=== PATIENT | female | born 1960 ===

== ENCOUNTER 2018-07-09 12:07 | Emergency (ER) | payer BC ==
[2018-07-09 12:16] VITALS: BMI 30.4
[2018-07-09 12:22] VITALS: TEMP 98.4
--- NOTE | 2018-07-09 13:07 | C.PDOC ---
History Of Present Illness 57 y/o female pt with hx of DM and HTN presents to the ER c/o left flank pain. Pt reports she woke up at 5:30 with left flank pain. Associated sx includes nausea and vomiting. Pt denies fever and diarrhea. Time Seen by Provider: 07/09/18 13:01 Chief Complaint (Nursing): Female Genitourinary History Per: Patient History/Exam Limitations: no limitations Onset/Duration Of Symptoms: Hrs Current Symptoms Are (Timing): Still Present Location Of Pain/Discomfort: Other (left flank) Past Medical History Reviewed: Historical Data, Nursing Documentation, Vital Signs Vital Signs: Last Vital Signs Temp 98.4 F 07/09/18 12:16 Pulse 92 H 07/09/18 12:16 Resp 17 07/09/18 12:16 BP 127/86 07/09/18 12:16 Pulse Ox 100 07/09/18 12:16 - Medical History PMH: HTN, Hypercholesterolemia, Kidney Stones, Chronic Kidney Disease (SEE COMMENT) Family History: States: No Known Family Hx - Social History Hx Alcohol Use: No Hx Substance Use: No - Immunization History Hx Tetanus Toxoid Vaccination: No Hx Influenza Vaccination: No Hx Pneumococcal Vaccination: Yes Review Of Systems Except As Marked, All Systems Reviewed And Found Negative. Constitutional: Negative for: Fever Gastrointestinal: Positive for: Nausea, Vomiting, Abdominal Pain (left flank pain ). Negative for: Diarrhea Physical Exam - Physical Exam Appears: Non-toxic, No Acute Distress Skin: Warm, Dry Head: Normacephalic Eye(s): bilateral: Normal Inspection, EOMI Oral Mucosa: Moist Chest: Symmetrical Cardiovascular: Rhythm Regular Respiratory: Normal Breath Sounds Gastrointestinal/Abdominal: Soft, No Tenderness, No Distention, No Guarding, No Rebound Back: CVA Tenderness Extremity: No Pedal Edema Neurological/Psych: Oriented x3, Normal Speech ED Course And Treatment - Laboratory Results Result Diagrams: 07/09/18 13:43 07/09/18 13:43 O2 Sat by Pulse Oximetry: 100 (RA) Pulse Ox Interpretation: Normal - CT Scan/US Abd&pelvis CT Other Rad Studies (CT/US): Read By Radiologist, Radiology Report Reviewed CT/US Interpretation: Accession No. : [id number]. Patient Name / ID : ED FUENTES / [id number]. Exam Date : 07/09/2018 13:47:47 ( Approved ). Study Comment : Sex / Age : F / 57Y. Creator : Haven Napoles MD. Dictator : Haven Napoles MD. Ribbon Blocker : Broadcast Journalist : Haven Napoles MD. Approver2 : Report Date : 07/09/2018 14:21:46. My Comment : . Date of service: 07/09/2018. PROCEDURE: CT Abdomen and Pelvis without intravenous contrast. HISTORY: abd pain. COMPARISON: None. TECHNIQUE: Axial and reformatted coronal and sagittal CT images of the abdomen and pelvis were obtained without IV or oral contrast administration.. Contrast dose: 0. Radiation dose: Total exam DLP = 509.3 mGy-cm. This CT exam was performed using one or more of the following dose reduction techniques: Automated exposure control, adjustment of the mA and/or kV according to patient size, and/or use of iterative reconstruction technique. FINDINGS: LOWER THORAX: No evidence of acute pathology at the lung bases. LIVER: No evidence of acute pathology in the liver. The liver is mildly enlarged demonstrate [id number]-[id number]-jvlkclht hepatic steatosis. GALLBLADDER AND BILE DUCTS: No evidence of acute cholecystitis. PANCREAS: Unremarkable. No gross lesion or ductal dilatation. SPLEEN: Unremarkable. ADRENALS: Unremarkable. No mass. KIDNEYS AND URETERS: There is mild left hydronephrosis up to 3 millimeter calculus at the proximal left ureter. There is also 2 millimeter calculus at the origin of the left ureter adjacent to the left renal pelvic. Pbnq-mu-bvqvaotq left perinephric stranding noted. The right kidney is grossly unremarkable. VASCULATURE: Unremarkable. No aortic aneurysm. No aortic atherosclerotic calcification or mural plaque present. BOWEL: Scattered colonic diverticulosis are seen without evidence of diverticulitis. No obstruction. No gross mural thickening. APPENDIX: No evidence of appendicitis. PERITONEUM: Unremarkable. No free fluid. No free air. LYMPH NODES: Unremarkable. No enlarged lymph nodes. BLADDER: Weio-hr-xmbvansh urinary bladder wall thickening. REPRODUCTIVE: The uterus and adnexa are not visualized. BONES: No acute fracture. OTHER FINDINGS: None. IMPRESSION: Mild left hydronephrosis up to 3 millimeter calculus at the proximal left ureter. Additional 2 millimeter calculus at the proximal portion of the left ureter adjacent to the UV junction. Mild to moderate left perinephric stranding. Colonic diverticulosis without evidence of diverticulitis. Oacs-wu-txkhuulf urinary bladder wall thickening. Medical Decision Making Medical Decision Making: Impression: left flank pain r/o kidney stone Plan: -- CT scan abd & pelvis -- chem labs -- blood work -- morphine -- zofran -- Urine cx -- UA Disposition - Disposition Referrals: Terrance Cohn MD [Staff Provider] - Disposition: HOME/ ROUTINE Disposition Time: 15:44 Condition: GOOD Additional Instructions: Follow up with Dr Joseph and take flomax and motrin as directed. Prescriptions: Ibuprofen [Motrin] 600 mg PO Q6 #20 tab Tamsulosin [Flomax] 0.4 mg PO DAILY #7 cap Instructions: Kidney Stones (DC) Forms: [employer] (Turkmen) - Clinical Impression Clinical Impression: Kidney stone - Scribe Statement The provider has reviewed the documentation as recorded by the Kavithaibcaroline Schaefer Do Provider Attestation: All medical record entries made by the Scribe were at my direction and personally dictated by me. I have reviewed the chart and agree that the record accurately reflects my personal performance of the history, physical exam, medical decision making, and the department course for this patient. I have also personally directed, reviewed, and agree with the discharge instructions and disposition.
[2018-07-09] MEDS ORDERED: Morphine 4 MG/ML VIAL ONE (13:55)
[2018-07-09 13:57] LABS: BASO % 0.4 % (0.0-2.0); EOS % 0.1 % (0.0-4.0); HEMOGLOBIN 12.2 g/dL (11.0-16.0); LYMPH # 0.6 K/uL (1.0-4.3); LYMPH % 8.2 % (20.0-40.0); MEAN CELL VOLUME 74.1 fL (81.0-99.0); MEAN CORPUSCULAR HEMOGLOBIN 22.6 pg (27.0-31.0); MEAN CORPUSCULAR HGB CONC 30.5 g/dL (33.0-37.0); MEAN PLATELET VOLUME 8.8 fL (7.2-11.7); MONO # 0.2 K/uL (0.0-0.8); MONO % 2.9 % (0.0-10.0); NEUT # 6.5 K/uL (1.8-7.0); NEUT % 88.4 % (50.0-75.0); PLATELET COUNT 163 K/uL (130-400); SQUAMOUS EPITHIAL 2 /hpf (0-5); URINE BACTERIA RARE (<OCC); URINE BILIRUBIN NEGATIVE (NEGATIVE); URINE BLOOD 3+ (NEGATIVE); URINE CLARITY Hazy (Clear); URINE COLOR Yellow (YELLOW); URINE GLUCOSE (UA) 3+ mg/dL (Normal); URINE LEUKOCYTE ESTERASE NEG Leu/uL (Negative); URINE PROTEIN 2+ mg/dL (NEGATIVE); URINE URIC ACID CRYSTALS FEW /hpf (<OCC); URINE UROBILINOGEN NORMAL mg/dL (0.2-1.0); WHITE BLOOD COUNT 7.4 K/uL (4.8-10.8)
[2018-07-09 14:09] VITALS: RESP 20
[2018-07-09 14:19] LABS: ALB/GLOB RATIO 1.2 (1.0-2.1); ALBUMIN 4.1 g/dL (3.5-5.0); CALCIUM 9.8 mg/dl (8.6-10.4)
--- NOTE | 2018-07-09 14:25 | CT ---
Date of service: 07/09/2018 PROCEDURE: CT Abdomen and Pelvis without intravenous contrast HISTORY: abd pain COMPARISON: None. TECHNIQUE: Axial and reformatted coronal and sagittal CT images of the abdomen and pelvis were obtained without IV or oral contrast administration.. Contrast dose: 0 Radiation dose: Total exam DLP = 509.3 mGy-cm. This CT exam was performed using one or more of the following dose reduction techniques: Automated exposure control, adjustment of the mA and/or kV according to patient size, and/or use of iterative reconstruction technique. FINDINGS: LOWER THORAX: No evidence of acute pathology at the lung bases. LIVER: No evidence of acute pathology in the liver. The liver is mildly enlarged demonstrate mnbm-fr-wocczqdn hepatic steatosis. GALLBLADDER AND BILE DUCTS: No evidence of acute cholecystitis. PANCREAS: Unremarkable. No gross lesion or ductal dilatation. SPLEEN: Unremarkable. ADRENALS: Unremarkable. No mass. KIDNEYS AND URETERS: There is mild left hydronephrosis up to 3 millimeter calculus at the proximal left ureter. There is also 2 millimeter calculus at the origin of the left ureter adjacent to the left renal pelvic. Fvtb-jj-rhovkuwh left perinephric stranding noted. The right kidney is grossly unremarkable. VASCULATURE: Unremarkable. No aortic aneurysm. No aortic atherosclerotic calcification or mural plaque present. BOWEL: Scattered colonic diverticulosis are seen without evidence of diverticulitis. No obstruction. No gross mural thickening. APPENDIX: No evidence of appendicitis. PERITONEUM: Unremarkable. No free fluid. No free air. LYMPH NODES: Unremarkable. No enlarged lymph nodes. BLADDER: Wflg-jt-ilferujx urinary bladder wall thickening. REPRODUCTIVE: The uterus and adnexa are not visualized. BONES: No acute fracture. OTHER FINDINGS: None. IMPRESSION: Mild left hydronephrosis up to 3 millimeter calculus at the proximal left ureter. Additional 2 millimeter calculus at the proximal portion of the left ureter adjacent to the UV junction. Mild to moderate left perinephric stranding. Colonic diverticulosis without evidence of diverticulitis. Qvub-pa-lcwajczf urinary bladder wall thickening.
[2018-07-09 14:34] LABS: ANISOCYTOSIS SLIGHT; BANDS 1 % (0-2); HYPOCHROMIC SLIGHT; LYMPHOCYTE 7 % (20-40); MONOCYTE 2 % (0-10); NEUTROPHIL 90 % (50-75); PLATELET ESTIMATE NORMAL (NORMAL); POIKILOCYTOSIS SLIGHT; TOTAL CELLS COUNTED 100
[2018-07-09 14:35] LABS: MICROCYTOSIS SLIGHT; OVALOCYTES SLIGHT; POLYCHROMIC SLIGHT
[2018-07-09 15:22] VITALS: BP 100/60; PULSE 100
[2018-07-09] MEDS ORDERED: Sod Polystyrene Sulf 15 gm/60 ml Susp PO ONE (15:22)
[2018-07-09 15:26] VITALS: O2SAT 100
[2018-07-09] MEDS ORDERED: Sod Polystyrene Sulf 15 gm/60 ml Susp ONE (15:32)
== END 2018-07-09 15:44 | disposition home or self-care (01) ==
LOC: C.ER 12:07
DX: N20.0 Calculus of kidney (principal); I12.9 Hypertensive chronic kidney disease with stage 1 through stage 4 chronic kidney disease, or unspecified chronic kidney disease; N18.9 Chronic kidney disease, unspecified; E78.00 Pure hypercholesterolemia, unspecified
CPT/HCPCS: 74176; 80053; 81001; 85025; 87086; 96374; 96375; 99285; J2270; J2405